=== PATIENT | male | born 1980 | race Hispanic/Latino ===

== ENCOUNTER → 2020-12-17 | Emergency (ER) | payer OTHER ==
[~2020-12-17] VITALS: Ht 170.2 cm; Wt 147.9 kg
[2020-12-17 12:18] VITALS: BP 134/95
== END | disposition home or self-care (01) ==
LOC: EDH 12:12
DX: R06.02 Shortness of breath (principal); Z86.16 Personal history of COVID-19; E11.9 Type 2 diabetes mellitus without complications; I10 Essential (primary) hypertension
CPT/HCPCS: 99281

== ENCOUNTER 2021-01-27 02:31 | Emergency (ER) | payer OTHER, SELFPAY ==
[~2021-01-27] VITALS: Ht 170.2 cm; Wt 145.6 kg
[2021-01-27 03:19] VITALS: BP 130/86
[2021-01-27 03:20] VITALS: BP 118/61
[2021-01-27] MEDS ORDERED: AZITHROMYCIN 250 MG TABLET PO ONE ×2 (04:30→04:38)
[2021-01-27] MEDS ORDERED: IPRATROPIUM/ALBUTEROL SULFATE 3 ML SOLUTION IH ONE ×3 (04:30)
[2021-01-27] MEDS ORDERED: PREDNISONE 10 MG TABLET PO ONE (04:30)
[2021-01-27] MEDS ORDERED: DiphenhydrAMINE HCL 50 MG/ML VIAL IM ONE (04:30)
[2021-01-27 04:33] VITALS: BP 143/95
[2021-01-27] MEDS ORDERED: PREDNISONE 20 MG TABLET ONE (04:37)
[2021-01-27] MEDS ORDERED: DiphenhydrAMINE HCL 50 MG/ML VIAL ONE (04:37)
[2021-01-27 05:05] LABS: ABG BASE EXCESS -4.4 mmol/L (-2.0-3.0); ABG HCO3 19.7 mmol/L (21.0-28.0); ABG OXYGEN SATURATION 93.7 % (95.0-99.0); ABG PCO2 34 mmHg (35-48)
[2021-01-27 05:55] VITALS: BP 152/92
[2021-01-27 06:29] VITALS: BP 143/92
[2021-01-27] MEDS ORDERED: BENZ-17 PO (06:39)
[2021-01-27] MEDS ORDERED: ALBU8.5H8 IH (06:39)
[2021-01-27] MEDS ORDERED: PRED20TA3 PO (06:39)
[2021-01-27] MEDS ORDERED: AZIT250T9 PO (06:39)
== END 2021-01-27 06:52 | disposition home or self-care (01) ==
LOC: EDH 02:31
DX: J45.901 Unspecified asthma with (acute) exacerbation (principal); Z20.822 Contact with and (suspected) exposure to COVID-19; E11.9 Type 2 diabetes mellitus without complications; Z79.52 Long term (current) use of systemic steroids; Z79.899 Other long term (current) drug therapy
CPT/HCPCS: 36600; 71046; 82803; 87635; 94640 ×3; 96372; 99285; C9803; J1200